=== PATIENT | male | born 1955 | race Hispanic/Latino ===

== ENCOUNTER 2025-03-02 15:07 | Outpatient (CLI) | payer MEDICARE | END 2025-03-02 15:08 | disposition home or self-care (01) | LOC: BICRAD 15:07 | PROVIDERS: ATTEND Family Medicine | DX: M17.12 Unilateral primary osteoarthritis, left knee (principal); M25.762 Osteophyte, left knee ==

== ENCOUNTER 2025-04-19 08:12 | Outpatient (CLI) | payer MEDICARE | END 2025-04-19 08:13 | disposition home or self-care (01) | LOC: ULT 08:12 | PROVIDERS: ATTEND Family Medicine | DX: Z13.6 Encounter for screening for cardiovascular disorders (principal); Z12.2 Encounter for screening for malignant neoplasm of respiratory organs; Z87.891 Personal history of nicotine dependence | CPT/HCPCS: 71271; 76706 ==